=== PATIENT | female | born 1980 | race African-American/Black ===

== ENCOUNTER 2016-09-29 17:57 | Observation (INO) | payer MEDICARE, MEDICAID ==
[~2016-09-29] VITALS: Ht 172.7 cm; Wt 80.0 kg
[~2016-09-29 17:57] MED LIST: ARIP400S IM; ESCI5TAB7 PO; [UNRECOGNIZED DRUG - OTHER]
[2016-09-29 19:10] LABS: DAU SCREEN DISCLAIMER
[2016-09-29 19:12] LABS: BLOOD UREA NITROGEN 15 mg/dL (7-18)
[2016-09-29 19:15] LABS: ASPARTATE AMINO TRANSFERASE 20 U/L (15-37)
[2016-09-29 19:16] LABS: ACETAMINOPHEN < 2 mcg/mL (10-30)
[2016-09-29] MEDS ORDERED: HALOPERIDOL 5 MG TABLET PO PRN (20:30)
[2016-09-29] MEDS ORDERED: ONDANSETRON ODT 4 MG PO PRN (20:30)
[2016-09-29] MEDS ORDERED: BISACODYL 10 MG SUPP PR PRN (20:30)
[2016-09-29] MEDS ORDERED: POLYETHYLENE GLYCOL 17 GM PACKET PO PRN (20:30)
[2016-09-29 21:21] LABS: HIV 1&2 ANTIBODY SCREEN Nonreactive (Nonreactive); HIV-1 p24 ANTIGEN Nonreactive (Nonreactive)
[2016-09-29 22:03] VITALS: BP 112/78
[2016-09-29] MEDS: NICOTINE 21 MG/24 HR PATCH.TD24 TD SCH (23:40)
[2016-09-30 07:59] VITALS: BP 122/81
[2016-09-30] MEDS: SENNA/DOCUSATE TABLET PO SCH (08:57)
[2016-09-30 19:36] VITALS: BP 99/61
[2016-09-30] MEDS: NICOTINE 21 MG/24 HR PATCH.TD24 TD SCH (20:34)
[2016-10-01 07:32] VITALS: BP 121/71
[2016-10-01] MEDS: SENNA/DOCUSATE TABLET PO SCH (08:14)
[2016-10-01 11:11] VITALS: BP 126/76
[2016-10-01] MEDS: DIPHENHYDRAMINE 50 MG CAPSULE PO PRN ×2 (11:28→20:25)
[2016-10-01] MEDS: LITHIUM CARBONATE 300 MG CAPSULE PO SCH (20:25)
[2016-10-01 21:41] VITALS: BP 158/70
[2016-10-02 08:00] VITALS: BP 139/72
[2016-10-02 09:43] LABS: HEPATITIS C VIRUS ANTIBODY Nonreactive (Nonreactive)
[2016-10-02] MEDS: SENNA/DOCUSATE TABLET PO SCH (10:33)
[2016-10-02] MEDS: LITHIUM CARBONATE 300 MG CAPSULE PO SCH (10:33)
[2016-10-02] MEDS: NICOTINE 21 MG/24 HR PATCH.TD24 TD SCH (10:34)
[2016-10-02] MEDS: DIPHENHYDRAMINE 50 MG CAPSULE PO PRN (13:30)
[2016-10-02] MEDS: LORazepam 1MG TABLET PO PRN (17:56)
[2016-10-02 20:04] VITALS: BP 102/62
[2016-10-03 07:56] VITALS: BP 132/77
[2016-10-03] MEDS: SENNA/DOCUSATE TABLET PO SCH (09:00)
[2016-10-03] MEDS: NICOTINE 21 MG/24 HR PATCH.TD24 TD SCH (09:00)
[2016-10-03] MEDS: DIPHENHYDRAMINE 50 MG CAPSULE PO PRN ×3 (09:05→21:49)
[2016-10-03] MEDS ORDERED: ARIPIPRAZOLE 15 MG TABLET PO ONE (14:30)
[2016-10-03] MEDS: LORazepam 1MG TABLET PO PRN ×2 (17:27→21:49)
[2016-10-03 19:32] VITALS: BP 118/82
[2016-10-03] MEDS ORDERED: DIPHENHYDRAMINE 25 MG CAPSULE ONE (21:48)
[2016-10-04 07:32] VITALS: BP 137/89
[2016-10-04] MEDS: LORazepam 1MG TABLET PO PRN (08:47)
[2016-10-04] MEDS: NICOTINE 21 MG/24 HR PATCH.TD24 TD SCH (08:47)
[2016-10-04] MEDS ORDERED: ARIPIPRAZOLE 15 MG TABLET PO SCH (09:00)
[2016-10-04] MEDS: SENNA/DOCUSATE TABLET PO SCH (09:00)
== END 2016-10-04 14:00 | disposition home or self-care (01) ==
LOC: ED 20:09 → EDIP 20:13 → 3E 21:59
PROVIDERS: ADMIT Family Medicine; ATTEND Family Medicine
DX: F29 Unspecified psychosis not due to a substance or known physiological condition (principal); F31.9 Bipolar disorder, unspecified; Z59.0 Homelessness; F20.9 Schizophrenia, unspecified; F17.210 Nicotine dependence, cigarettes, uncomplicated; Z91.19 Patient's noncompliance with other medical treatment and regimen; Z86.39 Personal history of other endocrine, nutritional and metabolic disease
CPT/HCPCS: 36415; 80053; 80074; 80178; 80307; 80329; 85025; 86703; 87491; 87591; 87899; 99285; G0378; Q0163; G0435; G0480

== ENCOUNTER 2016-10-05 17:29 | Observation (INO) | payer MEDICARE, MEDICAID ==
[~2016-10-05] VITALS: Ht 167.6 cm; Wt 77.0 kg
[2016-10-05] MEDS ORDERED: SODIUM CHLORIDE 0.9% 1,000 ML IV ONE (18:05)
[2016-10-05 18:09] LABS: DAU SCREEN DISCLAIMER
[2016-10-05] MEDS ORDERED: HALOPERIDOL 5 MG/ML ONE (18:19)
[2016-10-05] MEDS ORDERED: DIPHENHYDRAMINE 50 MG/ML, 1ML ONE (18:19)
[2016-10-05] MEDS ORDERED: ONDANSETRON 2MG/ML, 2ML ONE (18:19)
[2016-10-05] MEDS ORDERED: DIPHENHYDRAMINE 50 MG/ML, 1ML IVPush ONE (18:30)
[2016-10-05] MEDS ORDERED: SODIUM CHLORIDE 0.9% 1,000ML IVBOLUS ONE (18:30)
[2016-10-05] MEDS ORDERED: ONDANSETRON 2MG/ML, 2ML IVPush ONE (18:30)
[2016-10-05] MEDS ORDERED: HALOPERIDOL 5 MG/ML IVPush ONE (18:30)
[2016-10-05 18:32] LABS: HEMOGLOBIN 11.8 g/dL (11.7-16.4)
[2016-10-05 18:40] LABS: ASPARTATE AMINO TRANSFERASE 24 U/L (15-37); BLOOD UREA NITROGEN 17 mg/dL (7-18)
[2016-10-05 18:47] LABS: ACETAMINOPHEN < 2 mcg/mL (10-30)
[2016-10-05] MEDS ORDERED: BISACODYL 10 MG SUPP PR PRN (21:00)
[2016-10-05] MEDS ORDERED: ONDANSETRON ODT 4 MG PO PRN (21:00)
[2016-10-05] MEDS ORDERED: TRAZODONE 50MG TABLET PO PRN (21:00)
[2016-10-05] MEDS ORDERED: POLYETHYLENE GLYCOL 17 GM PACKET PO PRN (21:00)
[2016-10-05] MEDS ORDERED: DOCUSATE 100 MG CAPSULE PO PRN (21:00)
[2016-10-05 21:54] LABS: PATH.CAST-FLAG NOT PRESENT; SPERM-FLAG NOT PRESENT; SRC-FLAG NOT PRESENT; XTAL-FLAG NOT PRESENT; YLC-FLAG NOT PRESENT
[2016-10-05 22:57] VITALS: BP 121/78
[2016-10-06] MEDS ORDERED: ZIPRASIDONE 20 MG INJ IM ONE ×2 (00:37→01:00)
[2016-10-06] MEDS ORDERED: DIPHENHYDRAMINE 25 MG CAPSULE ONE (00:42)
[2016-10-06] MEDS ORDERED: DIPHENHYDRAMINE 50 MG CAPSULE PO ONE (01:00)
[2016-10-06 06:09] LABS: HEMOGLOBIN 11.3 g/dL (11.7-16.4)
[2016-10-06 06:14] LABS: ASPARTATE AMINO TRANSFERASE 18 U/L (15-37); BLOOD UREA NITROGEN 15 mg/dL (7-18)
[2016-10-06 07:47] VITALS: BP 109/63
[2016-10-06] MEDS: NITROFURANTOIN (MACROBID) 100 MG CAPSULE PO SCH ×2 (07:57→22:06)
[2016-10-06] MEDS ORDERED: HALOPERIDOL 5 MG TABLET PO PRN (08:00)
[2016-10-06] MEDS ORDERED: HALOPERIDOL 5 MG/ML IM PRN ×2 (08:00→11:30)
[2016-10-06] MEDS ORDERED: LORazepam 1MG TABLET PO PRN (09:30)
[2016-10-06] MEDS ORDERED: LORazepam 2 MG/ML, 1ML IM PRN ×2 (09:30→11:30)
[2016-10-06] MEDS ORDERED: HALOPERIDOL 1 MG TABLET PO PRN (11:30)
[2016-10-06] MEDS: ARIPIPRAZOLE 15 MG TABLET PO SCH (11:30)
[2016-10-06 19:45] VITALS: BP 104/69
[2016-10-07 07:57] VITALS: BP 134/78
[2016-10-07] MEDS: NITROFURANTOIN (MACROBID) 100 MG CAPSULE PO SCH (08:24)
[2016-10-07] MEDS: ARIPIPRAZOLE 15 MG TABLET PO SCH ×2 (08:24→08:25)
[2016-10-07] MEDS ORDERED: ARIP15TA2 PO (13:37)
[2016-10-07] MEDS ORDERED: NITR100C6 PO (13:37)
== END 2016-10-07 14:16 | disposition home or self-care (01) ==
LOC: ED 20:03 → EDIP 20:54 → 3E 21:17
PROVIDERS: ADMIT Internal Medicine; ATTEND Internal Medicine
DX: F29 Unspecified psychosis not due to a substance or known physiological condition (principal); R45.851 Suicidal ideations; F20.9 Schizophrenia, unspecified; F31.9 Bipolar disorder, unspecified; D64.9 Anemia, unspecified; E43 Unspecified severe protein-calorie malnutrition; N39.0 Urinary tract infection, site not specified; G20 Parkinson's disease; G25.0 Essential tremor; B20 Human immunodeficiency virus [HIV] disease; F15.90 Other stimulant use, unspecified, uncomplicated; D49.7 Neoplasm of unspecified behavior of endocrine glands and other parts of nervous system; Y09 Assault by unspecified means; F17.210 Nicotine dependence, cigarettes, uncomplicated; Z91.14 Patient's other noncompliance with medication regimen; Z98.890 Other specified postprocedural states; Z65.3 Problems related to other legal circumstances
CPT/HCPCS: 36415; 80053; 80307; 80329; 81001; 84703; 85025; 87086; 93005; 96361; 96372; 96374; 96375; 99285; G0378; J1200; J1630; J2060; J2405; J3486; J7030; Q0163; G0480